=== PATIENT | female | born 1975 | race Caucasian/White ===

== ENCOUNTER 2018-01-27 12:46 | Emergency (ER) | payer SELFPAY ==
[2018-01-27 12:50] VITALS: TEMP 99; BMI 29.7
--- NOTE | 2018-01-27 13:11 | PDOC ---
History of Present Illness - General Chief Complaint: Pain, Acute Stated Complaint: PAIN (12 WKS ) Time Seen by Provider: 01/27/18 13:09 - History of Present Illness Initial Comments: 42yo A1 currently 12 weeks (LMP 11/02/17) with no significant PMH presenting with spotting and abdominal pain. Patient reports that a [facility]- affiliated clinic confirmed via a blood test. She has not yet had an ultrasound that confirms an intrauterine and has not established an messenger copy. Her called Dr. Gonzáles, who recommended patient come to the ED for ultrasound. Vaginal bleeding is scant, noted as brown and accompanied by mucus on patients underwear. Patient reports abdominal pain in the RLQ that she rates at 7/10, but she currently does not endorse pain. She has not felt contractions. History of but no other abdominal surgeries. Previous was delivered at term but complicated with cervical insufficiency for which a cerclage was placed. Last bowel movement was this morning and was a normal formed brown stool without blood. Patient also reports urinary frequency, more than twice an hour since 4am today. No dysuria, hematuria, or urgency. Denies fever, chills, chest pain, shortness of breath, nausea, or vomiting. Past History - Past Medical History Allergies/Adverse Reactions: Allergies Allergy/AdvReac Type Severity Reaction Status Date / Time No Known Allergies Allergy Verified 01/27/18 12:48 Home Medications: Ambulatory Orders Comb No.42/Folic Acid [Prena1 Chew Tablet] 1.4 mg PO DAILY 01/27/18 COPD: No - Surgical History Appendectomy: Yes (when @ 8 yrs old) - Suicide/Smoking/Psychosocial Hx Smoking History: Never smoked Review of Systems - Review of Systems Comments:: Constitutional: no fever, no chills HEENT: no throat pain, no dysphagia Cardiovascular: no chest pain, no palpitations Respiratory: no cough, no shortness of breath Gastrointestinal: +abdominal pain, no nausea, no vomiting Genitourinary: no dysuria, no frequency Musculoskeletal: no myalgia, no arthralgia Skin: no rash, no itching Neurologic: no headache, no dizziness *Physical Exam - Vital Signs Last Vital Signs Temp Pulse Resp BP Pulse Ox 99 F 99 H 16 118/76 99 01/27/18 12:49 01/27/18 12:49 01/27/18 12:49 01/27/18 12:49 01/27/18 12:49 - Physical Exam Comments: General: Awake, alert, and fully oriented, in no acute distress Head: no signs of trauma Eyes: EOMI, sclera anicteric ENT: Moist mucus membranes Neck: Normal ROM, supple Lungs: Lungs clear, Normal breath sounds Cardio: Regular rhythm, S1 and S2 present Abdomen: Tender to palpation in RLQ and suprapubic area. Soft, non-distended. No guarding, no rebound, no masses Extremities: Normal range of motion, Distal pulses present SKIN: Warm, Dry, normal turgor Neurologic: Cranial nerves II through XII grossly intact. Normal speech Pelvic: External genitalia without erythema, exudate or discharge. Cervix is closed. Scant brown blood noted with white physiologic discharge. Uterus is noted to be of appropriate size and nontender. No cervical motion tenderness is seen. No masses are palpated. ED Treatment Course - LABORATORY CBC & Chemistry Diagram: 01/27/18 13:56 01/27/18 13:56 Medical Decision Making - Medical Decision Making Patient not present in room 5 01/27/18 13:14 42yo A1 currently 12 weeks (LMP 11/02/17) with no significant PMH presenting with spotting and abdominal pain. -DDX includes but not limited to ectopic , threatened , appendicitis, ovarian cyst, ovarian torsion -Labs: WBC=11.4, B-hcg= 83417.6 -TVUS: Single live intrauterine with estimated sonographic gestational age of 11 weeks 3 days. heart activity was documented. Questionable tiny subchorionic hemorrhage is present. Follow-up is needed -TVUS confirms IUP, lower suspicion for ectopic. Dr. Lujan saw patient in the ED and will have her follow-up with him. 01/27/18 14:06 *DC/Admit/Observation/Transfer Diagnosis at time of Disposition: Abdominal pain during - Discharge Dispostion Disposition: HOME Condition at time of disposition: Stable - Referrals Referrals: Liu Lujan MD [Primary Care Provider] - - Patient Instructions Additional Instructions: You were seen in the Emergency Department for vaginal spotting and abdominal pain. Ultrasound confirmed the . Blood work was unremarkable. Urinalysis did not show infection. Follow-up with your well digger, Dr. Lujan this week. You need to call and make an appointment. Return to the Emergency Department if you experience: -heavy bleeding (more than two pads per hour for two hours) -severe pain -lightheadedness -shortness of breath -high fever -any other concerning symptoms --- Usted fue atendido en el [facility] por manchado vaginal y dolor abdominal. La ecografa confirm el embarazo. El trabajo de que no era nada especial. El anlisis de orina no mostr infeccin. Rojelio un seguimiento con pak gineclogo / obstetra, Dr. Baumannn esta semana. Necesitas llamar y concertar lillie bhavya. Regrese al Departamento de Emergencias si experimenta: -sangrado abundante (ms de dos compresas por hora palak dos horas) -dolor marisa aturdimiento -cortitud de aliento -fiebre daphney - Cualquier otro sntoma relativo. - Post Discharge Activity
--- NOTE | 2018-01-27 14:05 | PDOC ---
Attending Attestation - HPI HPI: 01/27/18 14:07 CC: Vaginal Spotting. HPI: The patient is a 42 year old 12 weeks female A1, with no significant past medical history, who presents to the emergency department with , vaginal spotting. Patient notes her symptoms onset this morning with associated suprapubic pain. The pain has since resolved but, the spotting has continued with associated urinary frequency. She denies any abnormal discharge. She denies recent fevers, chills, headache or dizziness. She denies recent nausea, vomit, diarrhea or constipation. She denies recent dysuria or hematuria. She denies recent chest pain or shortness of breath. Allergies: NKDA Past surgical history: Appendectomy. Social history: Nonsmoker. Denies EtOH use and recreational drug use. OBGYN: Dr. Lujan - Physicial Exam PE: 01/27/18 15:26 Exam: Vitals: Triage Vital signs reviewed General Appearance: no acute distress, well nourished well developed, Head: Atraumatic, normocephalic Nose: No nasal congestion Neck: Supple;No Nuchal rigidity Chest Wall: Nontender Cardiac: Regular rate and rhythm, no murmurs, no rubs, no gallops, Lungs: Clear to auscultation bilateral, good air movement bilaterally, Abdomen: Soft, nondistended, normal bowel sounds, nontender to palpation Rectal: Exam deferred Pelvic: Refer to resident exam. Extremities: Full range of motion to all extremities, no cyanosis, clubbing, or edema Skin: Warm and dry, no rashes or lesions, no petechiae Neuro: AOX3; Cranial Nerves 2-12 grossly intact, Strength intact to all extremities, Sensation intact to all extremities Psych: normal mood, normal affect - Medical Decision Making 01/27/18 14:07 42 year old 12 weeks female with no significant history presents to the ED with vaginal spotting. Plan is to: Transvaginal US Urinalysis/UC CBC CMP Beta HCG Type and Screen <Martina Hernandez - Last Filed: 01/27/18 15:26> - Resident Resident Name: Olya Chester - ED Attending Attestation I have performed the following: I have examined & evaluated the patient, The case was reviewed & discussed with the resident, I agree w/resident's findings & plan, Exceptions are as noted - Medical Decision Making Rh+, Positive IUP on ultrasound well-appearing no apparent distress Benign abdominal examination. Patient will follow-up with her FINAL RAIL CUTTER next week. Findings, need follow-up and strict return instructions discussed patient. <Jose Chapman - Last Filed: 01/30/18 11:03> Attestations - Attestations 01/27/18 14:11 Documentation prepared by Martina Hernandez, acting as medical record assistant for Jose Chapman MD. <Martina Hernandez - Last Filed: 01/27/18 15:26>
[2018-01-27 14:20] LABS: URINE APPEARANCE CLEAR; URINE BILIRUBIN NEGATIVE (<2.0 mg/dL); URINE COLOR LTYELLOW; URINE GLUCOSE (UA) NEGATIVE (NEGATIVE); URINE KETONE NEGATIVE (NEGATIVE); URINE LEUK ESTERASE NEGATIVE (NEGATIVE); URINE NITRITE NEGATIVE (NEGATIVE); URINE PROTEIN NEGATIVE (NEGATIVE); URINE UROBILINOGEN NEGATIVE mg/dL (0.2-1.0)
[2018-01-27 14:21] LABS: BASO % 0.2 % (0-2.0); EOS % 0.9 % (0-4.5); HEMATOCRIT 34.3 % (32.4-45.2); HEMOGLOBIN 11.4 GM/dL (10.7-15.3); LYMPH % 23.6 % (8-40); MCH 27.8 pg (25.7-33.7); MCHC 33.4 g/dl (32.0-36.0); MEAN CELL VOLUME 83.4 fl (80-96); MEAN PLT VOLUME 8.1 fl (7.5-11.1); MONO % 5.4 % (3.8-10.2); NEUT % 69.9 % (42.8-82.8); PLATELET COUNT 327 K/MM3 (134-434); RBC 4.11 M/mm3 (3.60-5.2); RDW 16.1 % (11.6-15.6); WHITE BLOOD COUNT 11.4 K/mm3 (4.0-10.0)
[2018-01-27 15:32] LABS: ALBUMIN 3.1 g/dl (3.4-5.0); ALK PHOS 52 U/L (45-117); ANION GAP 9 MMOL/L (8-16); BILIRUBIN,TOTAL 0.4 mg/dL (0.2-1); BLOOD UREA NITROGEN 9 mg/dL (7-18); CALCIUM 8.6 mg/dL (8.5-10.1); CHLORIDE 104 mmol/L (98-107); CO2 23 mmol/L (21-32); CREATININE 0.6 mg/dL (0.55-1.3); GLUCOSE,RANDOM 105 mg/dL (74-106); POTASSIUM 3.6 mmol/L (3.5-5.1); SGOT/AST 22 U/L (15-37); SGPT/ALT 22 U/L (13-61); SODIUM 136 mmol/L (136-145); TOT PROT 6.9 g/dl (6.4-8.2)
[2018-01-27 16:34] VITALS: BP 113/74; PULSE 89
== END 2018-01-27 16:30 | disposition home or self-care (01) ==
LOC: JER 12:46 → SUPCPDRO 12:46 → JER 16:30
DX: O26.891 Other specified pregnancy related conditions, first trimester (principal); Z3A.11 11 weeks gestation of pregnancy; N93.9 Abnormal uterine and vaginal bleeding, unspecified
CPT/HCPCS: 36415; 76815-TC; 80053; 81003; 84702; 85025; 86850; 86900; 86901; 87086; 99282-25

== ENCOUNTER 2018-08-04 06:03 | Inpatient (IN) | payer OTHER ==
[2018-08-04] MEDS ORDERED: ELECTROLYTE-148 SOLN 500 ML IV ONE (06:05)
[2018-08-04] MEDS ORDERED: CITRIC ACID/SODIUM CITRATE 30 ML UNIT-DOSE CUP PO ONE ×2 (06:05→06:44)
[2018-08-04 06:34] VITALS: BMI 32.2
[2018-08-04] MEDS ORDERED: ELECTROLYTE-148 SOLN 1,000 ML IV SCH ×2 (06:35→06:45)
--- NOTE | 2018-08-04 06:51 | HP ---
Past Medical History - Primary Care Physician PCP:: Liu Lujan - Admission Chief Complaint: 39 weeks, previous c/s. AMA, request of repeat c/s History of Present Illness: 42 yof 39 weeks, with previous c/s, requesting repeat c/s , risks of c/ s has explained to patient , cx clp, fhr cat 1, no contraction her Materni T21 showed trisomy 21, declined amnio. History Source: Patient Limitations to Obtaining History: No Limitations - Past Medical History ...: 3 ...Para: 1 ...Term: 1 ...: 0 ...Spon : 1 ...Induced : 0 ...Multiple Gestation: 0 ...LMP: 11/02/17 ... Weeks Gestation by Dates: 39.2 ...EDC by Dates: 08/09/18 ...EDC by Sono: 08/09/18 - Past Surgical History Past Surgical History: Yes: Hx Myomectomy: No Hx Transabdominal Cerclage: No - Smoking History Smoking history: Never smoked Have you smoked in the past 12 months: No - Alcohol/Substance Use Hx Alcohol Use: No History of Substance Use: reports: None - Social History Usual Living Arrangement: Yes: With Spouse History of Recent Travel: No Home Medications - Allergies Allergies/Adverse Reactions: Allergies Allergy/AdvReac Type Severity Reaction Status Date / Time No Known Allergies Allergy Verified 08/04/18 06:20 - Home Medications Home Medications: Ambulatory Orders Comb No.42/Folic Acid [Prena1 Chew Tablet] 1.4 mg PO DAILY 01/27/18 Review of Systems - Review of Systems Constitutional: reports: No Symptoms Eyes: reports: No Symptoms HENT: reports: No Symptoms Neck: reports: No Symptoms Cardiovascular: reports: No Symptoms Respiratory: reports: No Symptoms Gastrointestinal: reports: No Symptoms Genitourinary: reports: No Symptoms Musculoskeletal: reports: No Symptoms Integumentary: reports: No Symptoms Neurological: reports: No Symptoms Endocrine: reports: No Symptoms Psychiatric: reports: No Symptoms Physical Exam - Maternity Vital Signs: Vital Signs Temperature 98.4 F 08/04/18 06:25 Pulse Rate 91 H 08/04/18 06:25 Respiratory Rate 20 08/04/18 06:25 Blood Pressure 113/75 08/04/18 06:25 O2 Sat by Pulse Oximetry (%) Constitutional: Yes: Well Nourished, No Distress, Calm Eyes: Yes: WNL, Conjunctiva Clear, EOM Intact HENT: Yes: WNL, Atraumatic, Normocephalic Neck: Yes: WNL, Supple, Trachea Midline Cardiovascular: Yes: WNL, Regular Rate and Rhythm Breast(s): Yes: WNL - Abdominal Exam/OB Fundal Height: 40 Number of Fetuses: Single Presentation: Vertex Contractions: No Intensity: Unaware Monitor Mode: External Category: I Accelerations: Uniform - Vaginal Exam/OB Vaginal Bleediing: No Speculum Exam: No Dilatation (cm): closed Effacement (%): 0 Amniotic Membrane Status: Intact Presentation: Vertex/Position Station: -3 - Physical Exam Musculoskeletal: Yes: WNL Extremities: Yes: WNL Edema: Yes Edema: LLE: Trace, RLE: Trace Deep Tendon Reflex Grade: Normal +2 Psychiatric: Yes: WNL Hemorrhage Risk Assessment - Risk Factors Medium Risk Factors: Yes: None High Risk Factors: Yes: None Risk Score: 1 Risk Level: Medium Risk Problem List - Problems (1) with 39 completed weeks gestation Code(s): Z3A.39 - 39 WEEKS GESTATION OF (2) Previous section complicating Code(s): O34.219 - MATERNAL CARE FOR UNSP TYPE SCAR FROM PREVIOUS DEL (3) Advanced maternal age (AMA) in Code(s): [id number] - (4) Suspected Down syndrome Code(s): R68.89 - OTHER GENERAL SYMPTOMS AND SIGNS Assessment/Plan repeat c/s, risks discussed
[2018-08-04] MEDS ORDERED: OXYTOCIN 20 UNITS in 0.9% NS 20 UNIT/1,000 ML INFUS.BAG IV ONE (07:36)
[2018-08-04] MEDS ORDERED: ePHEDrine SULFATE 50 MG/1 ML AMPULE ONE (07:39)
[2018-08-04] MEDS ORDERED: morphine SULFATE/Preservative Free 0.5 MG/ML (1cc Syringe) ONE (07:39)
[2018-08-04] MEDS ORDERED: BENZOCAINE 20% 57 GM BOTTLE TP PRN (07:40)
[2018-08-04] MEDS ORDERED: IBUPROFEN 800 MG/8 ML IJ IVPB PRN (07:40)
[2018-08-04] MEDS ORDERED: oxyCODONE HCL 5 MG TABLET PO PRN ×2 (07:40)
[2018-08-04] MEDS ORDERED: WITCH HAZEL 50% (TUCKS) 40 PAD/JAR PAD TP PRN (07:40)
[2018-08-04] MEDS ORDERED: diphenhydrAMINE HCL 25 MG CAPSULE (FP) PO PRN (07:40)
[2018-08-04] MEDS ORDERED: BENZOCAINE 28 GM HEMORRHOIDAL OINTMENT PR PRN (07:40)
[2018-08-04] MEDS ORDERED: METHYLERGONOVINE MALEATE 0.2 MG/1 ML AMP IM PRN (07:40)
[2018-08-04] MEDS ORDERED: OXYTOCIN 20 UNITS in 0.9% NS 20 UNIT/1,000 ML INFUS.BAG IV SCH (07:45)
[2018-08-04] MEDS ORDERED: DEXTROSE 5%-LACTATED RINGERS 1,000 ML IV SCH (07:45)
[2018-08-04] MEDS ORDERED: ceFAZolin SODIUM 1 GM VIAL ONE (07:58)
[2018-08-04] MEDS ORDERED: OXYTOCIN 10 UNITS/ML VIAL ONE (08:12)
[2018-08-04 08:58] LABS: VENOUS PC02 45.9 mmHg (41-51); VENOUS PH 7.35 (7.31-7.41)
[2018-08-04] MEDS ORDERED: DEXAMETHASONE SOD PHOSPHATE 4 MG/1 ML VIAL ONE (09:00)
[2018-08-04] MEDS ORDERED: ONDANSETRON 4 MG/2 ML VIAL IVPUSH PRN (09:24)
[2018-08-04 09:27] LABS: VENOUS PO2 26.8 mmHg (30-40)
[2018-08-04] MEDS: CEFAZOLIN 1 GM/D5W 1 GM/50 ML BAG IVPB SCH ×2 (11:00→17:15)
[2018-08-05] MEDS ORDERED: ACETAMINOPHEN 325 MG TABLET (FP) PO PRN (00:35)
[2018-08-05] MEDS: IBUPROFEN 600 MG TABLET (FP) PO PRN ×3 (04:23→22:41)
[2018-08-05 07:31] LABS: BASO % 0.1 % (0-2.0); EOS % 0.9 % (0-4.5); HEMATOCRIT 31.3 % (32.4-45.2); HEMOGLOBIN 10.2 GM/dL (10.7-15.3); LYMPH % 14.9 % (8-40); MCH 29.9 pg (25.7-33.7); MCHC 32.5 g/dl (32.0-36.0); MEAN PLT VOLUME 8.7 fl (7.5-11.1); MONO % 7.7 % (3.8-10.2); NEUT % 76.4 % (42.8-82.8); PLATELET COUNT 251 K/MM3 (134-434); RDW 14.2 % (11.6-15.6); WHITE BLOOD COUNT 17.1 K/mm3 (4.0-10.0)
[2018-08-05] MEDS ORDERED: BISACODYL 10 MG SUPP.RECT RC PRN (07:40)
--- NOTE | 2018-08-05 07:52 | PN ---
Progress Note (short form) - Note Progress Note: pod 1 s/p repeat c/s doing well, no c/o, ambulating Last Vital Signs Temp Pulse Resp BP Pulse Ox 98.6 F 85 18 101/58 L 99 08/05/18 06:00 08/05/18 06:00 08/05/18 06:00 08/05/18 06:00 08/04/18 21:00 abdomen soft, no distension, no cva uterus firm , non tender lochia mild no calf tenderness plan ambulate ,cbc advance diet Problem List - Problems (1) with 39 completed weeks gestation Code(s): Z3A.39 - 39 WEEKS GESTATION OF (2) Previous section complicating Code(s): O34.219 - MATERNAL CARE FOR UNSP TYPE SCAR FROM PREVIOUS DEL (3) Advanced maternal age (AMA) in Code(s): [id number] - (4) Suspected Down syndrome Code(s): R68.89 - OTHER GENERAL SYMPTOMS AND SIGNS
--- NOTE | 2018-08-05 08:29 | OP ---
DATE OF OPERATION: 08/04/2018 PREOPERATIVE DIAGNOSES: , 39 weeks; previous section; advanced maternal age; request of repeat section. POSTOPERATIVE DIAGNOSES: , 39 weeks; previous section; advanced maternal age; request of repeat section. PROCEDURE: Repeat low-segment transverse section. SURGEON: Rolando Ba MD SCLEROSCOPE TESTER: MONISHA Winters ANESTHESIA: Spinal. ANESTHESIOLOGIST: Fabian Singh DO ESTIMATED BLOOD LOSS: 500 mL OPERATING COURSE: Patient was taken to the operating room. Under adequate spinal anesthesia, abdomen and perineum were prepped and draped. Pfannenstiel abdominal skin incision was made. Abdominal wall was cut layer by layer. Anterior peritoneum was exposed and incised. Upon entering the abdominal cavity, lower uterine segment was identified and uterovesical fold of peritoneum established. Bladder was pushed down. Then, with the lower blade of the Nuzhat retractor in the pelvis, a low transverse uterine incision was made. Incision extended laterally. Amniotic sac was entered, clear fluid. Head delivered. Nasopharynx was suctioned, and live baby boy was delivered without any difficulty. Placenta was delivered manually. Uterine cavity was cleaned of all remaining tissue. Uterine incision was closed in 2 layers, first layer with 0 Biosyn continuous suture, the second layer with 0 Biosyn imbricating the first layer. Bladder flap was closed with 0 Biosyn continuous suture. Both tubes and ovaries were checked, were normal. No active bleeding was seen. Patient had multiple omental adhesions, and these adhesions were clamped with a Supriya clamp and cut and then tied with Biosyn ties. Then, after lysis of adhesions, peritoneum was closed with 0 Biosyn continuous suture. Muscles were brought together with interrupted sutures of 0 Biosyn. Fascia was closed with 0 Biosyn continuous suture, subcutaneous fat with interrupted suture of 0 Biosyn, and the skin was closed with 4-0 Biosyn subcuticular continuous suture. Patient tolerated the procedure well, left the OR in good condition. ROLANDO BA M.D. [id number]
[2018-08-05] MEDS: ENOXAPARIN NA (PORCINE) 40 MG/0.4 ML DISP.SYRIN SQ SCH (09:48)
--- NOTE | 2018-08-05 10:00 | PN ---
Progress Note (short form) - Note Progress Note: Anesthesia/pain S:Alert and awake comfortable O; Vital Signs Temperature 98.4 F 08/05/18 08:35 Pulse Rate 89 08/05/18 08:35 Respiratory Rate 20 08/05/18 08:35 Blood Pressure 106/65 08/05/18 08:35 O2 Sat by Pulse Oximetry (%) 99 08/04/18 21:00 CBC, BMP 08/05/18 05:45 A/P: Current Active Problems Advanced maternal age (AMA) in (Acute) with 39 completed weeks gestation (Acute) Previous section complicating (Acute) Suspected Down syndrome (Acute) s/p c section Doing well post op Continue current care Tex Rucker MD
[2018-08-05] MEDS: SIMETHICONE 80 MG TAB.CHEW (FP) PO PRN ×2 (15:42→22:41)
[2018-08-05] MEDS: ACETAMINOPHEN 325 MG TABLET (FP) PO PRN ×2 (15:43→22:41)
[2018-08-06] MEDS: SIMETHICONE 80 MG TAB.CHEW (FP) PO PRN (09:15)
[2018-08-06] MEDS: ACETAMINOPHEN 325 MG TABLET (FP) PO PRN ×2 (09:16→19:29)
[2018-08-06] MEDS: ENOXAPARIN NA (PORCINE) 40 MG/0.4 ML DISP.SYRIN SQ SCH (09:16)
[2018-08-06] MEDS: IBUPROFEN 600 MG TABLET (FP) PO PRN ×2 (09:16→19:27)
--- NOTE | 2018-08-06 16:52 | PN ---
Progress Note (short form) - Note Progress Note: pod 2 no c/o passing gas , voids ok, no excess vaginal bleeding CBC, BMP 08/05/18 05:45 Last Vital Signs Temp Pulse Resp BP Pulse Ox 98.2 F 87 20 115/68 99 08/06/18 08:14 08/06/18 08:14 08/06/18 08:14 08/06/18 08:14 08/04/18 21:00 abdomen soft, no cva , no distension, BS are normal incision dry, clean no calf tenderness no excess vaginal bleeding plan ambulate, cbc in am Problem List - Problems (1) with 39 completed weeks gestation Code(s): Z3A.39 - 39 WEEKS GESTATION OF (2) Previous section complicating Code(s): O34.219 - MATERNAL CARE FOR UNSP TYPE SCAR FROM PREVIOUS DEL (3) Advanced maternal age (AMA) in Code(s): [id number] - (4) Suspected Down syndrome Code(s): R68.89 - OTHER GENERAL SYMPTOMS AND SIGNS
[2018-08-06 20:38] LABS: EPI CELLS 0.7 /HPF (0-5/HPF); PH,URINE 6.5 (5.0-8.0); URINE APPEARANCE CLEAR; URINE BACTERIA 1.4 /hpf (NEGATIVE); URINE BILIRUBIN NEGATIVE (NEGATIVE); URINE CASTS 1 /lpf (0-8); URINE COLOR YELLOW; URINE GLUCOSE (UA) NEGATIVE (NEGATIVE); URINE KETONE NEGATIVE (NEGATIVE); URINE LEUK ESTERASE NEGATIVE (NEGATIVE); URINE NITRITE NEGATIVE (NEGATIVE); URINE PROTEIN NEGATIVE (NEGATIVE); URINE RBC 3 /hpf (0-4); URINE UROBILINOGEN 0.2 mg/dL (0.2-1.0); URINE WBC 2 /hpf (0-5)
[2018-08-06] MEDS ORDERED: SENNOSIDES/DOCUSATE COMBO (SENNA PLUS) TABLET (UD) PO PRN (22:00)
[2018-08-06] MEDS: NITROFURANTOIN MACROCRYSTAL 50 MG CAPSULE (FP) PO SCH ×2 (23:13→23:35)
[2018-08-07] MEDS: NITROFURANTOIN MACROCRYSTAL 50 MG CAPSULE (FP) PO SCH ×4 (05:48→17:42)
--- NOTE | 2018-08-07 07:52 | PN ---
Progress Note (short form) - Note Progress Note: pod 3 c/o urinary frequecy, and burning, no hematuria Last Vital Signs Temp Pulse Resp BP Pulse Ox 98.5 F 95 H 18 125/74 99 08/06/18 22:00 08/06/18 22:00 08/06/18 22:00 08/06/18 22:00 08/04/18 21:00 abdomen soft, no distension, no cva incision dry, clean no vaginal discharge. no excess vaginal bleeding plan ambulate , u/a , c/s .r/o uti will start macrodantin pending C/S Problem List - Problems (1) with 39 completed weeks gestation Code(s): Z3A.39 - 39 WEEKS GESTATION OF (2) Previous section complicating Code(s): O34.219 - MATERNAL CARE FOR UNSP TYPE SCAR FROM PREVIOUS DEL (3) Advanced maternal age (AMA) in Code(s): [id number] - (4) Suspected Down syndrome Code(s): R68.89 - OTHER GENERAL SYMPTOMS AND SIGNS
[2018-08-07 07:55] LABS: BASO % 0.2 % (0-2.0); EOS % 3.9 % (0-4.5); HEMATOCRIT 29.3 % (32.4-45.2); HEMOGLOBIN 9.8 GM/dL (10.7-15.3); LYMPH % 18.6 % (8-40); MCH 30.9 pg (25.7-33.7); MCHC 33.5 g/dl (32.0-36.0); MEAN CELL VOLUME 92.1 fl (80-96); MEAN PLT VOLUME 8.7 fl (7.5-11.1); MONO % 5.5 % (3.8-10.2); NEUT % 71.8 % (42.8-82.8); PLATELET COUNT 270 K/MM3 (134-434); RBC 3.18 M/mm3 (3.60-5.2); RDW 14.3 % (11.6-15.6); WHITE BLOOD COUNT 11.2 K/mm3 (4.0-10.0)
[2018-08-07] MEDS: SIMETHICONE 80 MG TAB.CHEW (FP) PO PRN ×2 (08:25→20:43)
[2018-08-07] MEDS: ACETAMINOPHEN 325 MG TABLET (FP) PO PRN ×2 (08:26→20:43)
[2018-08-07] MEDS: IBUPROFEN 600 MG TABLET (FP) PO PRN ×2 (08:26→20:44)
[2018-08-07] MEDS: ENOXAPARIN NA (PORCINE) 40 MG/0.4 ML DISP.SYRIN SQ SCH (10:36)
--- NOTE | 2018-08-07 16:37 | PATH ---
Surgical Pathology Report Patient Name: GABBY DUMONT [facility] [place]. Rec. 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 Specimen(s) Received PLACENTA Clinical History , x1 1997, miscarriage 1997 Final Diagnosis PLACENTA: THIRD TRIMESTER PLACENTA. TRIVASCULAR CORD. MEMBRANES WITH NO DIAGNOSTIC ABNORMALITIES. Electronically Signed Steve Steen M.D. Gross Description The specimen is received fresh labeled placenta and is a 600 gram, 17.0 x 15.0 x 2.8 cm. placenta with attached membranes and umbilical cord. The attached membranes are kemp, translucent with focal opacities and insert marginally. The umbilical cord measures 18 cm. in length and averages 1 cm. in diameter. The cord inserts eccentrically, 2 cm. to the nearest margin. No true knots or strictures are identified. Cut surface of the umbilical cord reveals 3 vessels. The surface is rodgers-blue with minimal fibrin deposition and appropriate caliber vessels. The maternal surface is red-brown with focal defects. Sectioning reveals red-brown, spongy parenchyma. No lesions are identified. Bench Chemist sections are submitted in three cassettes as follows: 1- membrane rolls and umbilical cord; 2-3- full thickness sections of placenta. /08/04/2018 saudi/08/04/2018
[2018-08-08] MEDS: NITROFURANTOIN MACROCRYSTAL 50 MG CAPSULE (FP) PO SCH ×4 (01:02→17:41)
[2018-08-08 08:59] VITALS: BP 132/74; PULSE 65; TEMP 98.4
[2018-08-08] MEDS: ENOXAPARIN NA (PORCINE) 40 MG/0.4 ML DISP.SYRIN SQ SCH (10:16)
--- NOTE | 2018-08-08 10:21 | DS ---
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 Vital Signs: Vital Signs Temperature 98.4 F 08/08/18 08:57 Pulse Rate 65 08/08/18 08:57 Respiratory Rate 20 08/08/18 08:57 Blood Pressure 132/74 08/08/18 08:57 O2 Sat by Pulse Oximetry (%) 99 08/04/18 21:00 Constitutional: Yes: Well Nourished Eyes: Yes: Conjunctiva Clear HENT: Yes: Atraumatic Neck: Yes: Supple Cardiovascular: Yes: Regular Rate and Rhythm Respiratory: Yes: Regular Gastrointestinal: Yes: Normal Bowel Sounds ...Rectal Exam: Yes: WNL External Genitalia: Yes: Normal Vaginal Exam: Yes: Normal Cervix: Yes: Normal ....Post : Yes: Uterus firm Breast(s): Yes: WNL Musculoskeletal: Yes: WNL Extremities: Yes: WNL Wound/Incision: Yes: Well Approximated Neurological: Yes: Alert, Oriented Psychiatric: Yes: Alert Labs: CBC, BMP 08/07/18 06:48 Delivery - Delivery Type of Anesthesia: Spinal Episiotomy/Laceration: None EBL (cc): 500 Delivery, Single - Stages of Labor Date of Delivery: 08/04/18 Time of Delivery: 08:16 Time Placenta Delivered: 08:17 - Condition of Chiller Operator/Cleaner Laboratory Equipment Present: Yes Name: Jignesh Brower Infant Gender: Male Weight: 8 lb 8 oz Position: Right, OT Total Hours ROM (Hrs/Mins): 2 MINS - 1 Minute Total Score: 8 5 Minutes Total Score: 7 - Feeding Plan Initial Plan: Elected not to breastfeed exclusively throughout hospitalization Discharge Summary Reason For Visit: ADMIT C/S Current Active Problems Advanced maternal age (AMA) in (Acute) with 39 completed weeks gestation (Acute) Previous section complicating (Acute) Suspected Down syndrome (Acute) Procedures: Principal: delivery Hospital Course: Routine post op care Condition: Stable - Instructions Diet, Activity, Other Instructions: regular diet, follow up h[facility] 2 weeks, if fever, pain, heavy vaginal bleeding call Referrals: Liu Lujan MD [Staff Physician] - - Home Medications Comprehensive Discharge Medication List: Ambulatory Orders Comb No.42/Folic Acid [Prena1 Chew Tablet] 1.4 mg PO DAILY 01/27/18 Ibuprofen [Motrin -] 600 mg PO TID #90 tablet 08/06/18
[2018-08-08] MEDS: IBUPROFEN 600 MG TABLET (FP) PO PRN (17:40)
[2018-08-08] MEDS: ACETAMINOPHEN 325 MG TABLET (FP) PO PRN (17:40)
== END 2018-08-08 18:00 | disposition home or self-care (01) | DRG 540 ==
LOC: JLDR 06:03 → J3W 11:00
PROVIDERS: ADMIT Obstetrics & Gynecology; ATTEND Obstetrics & Gynecology
PROC: 10D00Z1 Extraction of Products of Conception, Low, Open Approach (ICD-10-PCS; principal; 2018-08-04)
DX: O34.219 Maternal care for unspecified type scar from previous cesarean delivery (principal); Z3A.39 39 weeks gestation of pregnancy; Z37.0 Single live birth
CPT/HCPCS: 36415; 36600; 71046-TC-FY; 80048; 81003; 82803; 85025; 85610; 85730; 86593; 86850; 86900; 86901; 87086; 88307-TC